=== PATIENT | female | born 1985 | race Caucasian/White ===

== ENCOUNTER 2022-12-29 13:59 | Emergency (ER) | payer OTHER, SELFPAY ==
[2022-12-29 14:07] VITALS: BP 142/87; PULSE 90; RESP 18; O2SAT 98
[2022-12-29] MEDS: predniSONE 20 MG TAB 40 MG PO (14:35)
[2022-12-29] MEDS: Lidocaine 5% Patch 1 PATCH TP (14:35)
[2022-12-29] MEDS: Acetaminophen 500 MG TAB 1000 MG PO (14:35)
--- NOTE | 2022-12-29 14:56 | DI.RAD_ITS ---
Exam(s) XR HIP LT COMPLETE AP PELVIS EXAM: XR HIP LT COMPLETE AP PELVIS CLINICAL HISTORY: left hip pain at SI joint. TECHNIQUE: 2D digital imaging was performed. COMPARISON: No exams were available for comparison FINDINGS: 3 views No evidence of pelvic nor hip fracture. No hip joint space narrowing. SI joints appear unremarkable . Bone density normal. No osseous lesions. IMPRESSION: No significant osseous findings. DATA REPOSITORY: RADIATION DOSE DELIVERED:
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
[2022-12-29 15:19] VITALS: BP 142/87; PULSE 90; RESP 18; O2SAT 98
== END 2022-12-29 15:20 | disposition home or self-care (01) ==
PROVIDERS: Emergency Provider Student in an Organized Health Care Education/Training Program
DX: M54.50 Low back pain, unspecified (principal); M46.1 Sacroiliitis, not elsewhere classified
CPT/HCPCS: 81025; 99283; 73502; J7512

== ENCOUNTER 2023-08-10 22:34 | Outpatient (REF) | payer BC, SELFPAY ==
[2023-08-10 15:35] LABS: ESR 20 mm/hr (0-20)
[2023-08-10 15:37] LABS: Abs Immature Grans 0.02 10^3/uL (0.0-0.06); Absolute Basophil Count 0.03 10^3/uL (0.0-0.2); Absolute Eosinophil Count 0.32 10^3/uL (0.0-0.7); Absolute Lymphocyte Count 2.91 10^3/uL (1.2-3.4); Absolute Monocyte Count 0.53 10^3/uL (0.1-0.8); Absolute Neutrophil Count 4.65 10^3/uL (1.2-6.7); Basophils % 0.4; Eosinophils % 3.8; HCT 41.1 % (36.0-46.0); HGB 13.7 g/dL (11.2-15.7); Immature Grans % 0.2; Lymphocytes % 34.4; MCHC 33.3 % (32.0-36.0); MCV 87 fL (80-95); MPV 8.9 fL (8.0-11.0); Monocytes % 6.3; Neutrophils % 54.9; Platelet Count 488 10^3/uL (130-400); RBC 4.73 10^6/uL (3.93-5.22); RDW 12.3 % (11.7-14.6); RDW-SD 39.2 fL; WBC 8.46 10^3/uL (4.4-10.8)
[2023-08-10 16:05] LABS: ALT 23 U/L (14-59); AST 14 U/L (15-37); Alkaline Phosphatase 54 U/L (46-116); Anion Gap 12.7 mmol/L (3-11); BUN 16 mg/dL (7-18); Bilirubin, Total 0.3 mg/dL (0.2-1.0); CO2 24.3 mmol/L (21.0-32.0); CREATININE 1.1 mg/dL (0.55-1.02); Calculated LDL 102 mg/dL (<100); Chloride 102 mmol/L (98-107); Cholesterol 191 mg/dL (<200); Estimated GFR 65.55 (mL/min/1.73m2); Glucose 84 mg/dL (74-106); HDL Cholesterol 45 mg/dL (40-60); Potassium 4.5 mmol/L (3.5-5.1); Sodium 139 mmol/L (136-145); TSH (W/Ref FT4) 1.15 uIU/mL (0.36-3.74); Total Protein 7.4 g/dL (6.4-8.2); Triglyceride 223 mg/dL (<150)
== END 2023-08-10 22:35 | disposition home or self-care (01) ==
LOC: NCHCN 22:34
PROVIDERS: PCP Family Medicine; Visit Provider Family Medicine
DX: Z00.00 Encounter for general adult medical examination without abnormal findings (principal); L93.0 Discoid lupus erythematosus; E66.8 Other obesity; R79.89 Other specified abnormal findings of blood chemistry; Z13.220 Encounter for screening for lipoid disorders
CPT/HCPCS: 80053; 80061; 85652; 84443; 85025

== ENCOUNTER → 2023-08-13 03:13 | Outpatient (CLI) | payer BC, SELFPAY ==
--- NOTE | 2023-08-13 | DI.MAMMO_ITS ---
Exam(s) MAMMO SCREENING EXAM: MAMMO SCREENING CLINICAL HISTORY: SCREENING, Z12.31,FAMILY H/O BREAST CA. TECHNIQUE: Bilateral full field digital CC and MLO mammographic images were obtained with 3D tomosyn thesis and utilizing computer aided detection (CAD). COMPARISON: Prior mammograms were reviewed. FINDINGS: Fibroglandular tissue pattern is moderately dense. There are nodular densities bilaterally. In the left breast there are 3 nodular densities towards the medial aspect of the breast, the largest measuring 9 by 5 mm and located 7 cm in from the nipple. More medially there is a slightly smaller nodular density measuring 9 cm from the nipple. The 3rd-smallest asymmetric density measures 3-4 mm and is located 10 cm from the nipple. In the right breast on the CC view there is a 4 x 3 millimeter nodule located 10 cm in from the nippl e on the CC view and another adjacent nodular density also noted. Similar distance from nipple on th e CC view. Also a larger asymmetric density located medially measuring 12 x 8 mm, located 9 cm in fr om the nipple on the CC view. On the MLO view of the right breast there is a oval noncalcified 7 x 5 mm nodule located 9 cm in from the nipple on the MLO view. There are no malignant-appearing microcalcification groups in either breast. No significant architectural distortion or skin thickening-traction. IMPRESSION: Moderately dense bilateral fibroglandular tissue with multiple nodular densities in both breasts. Sp ot compression views and bilateral breast ultrasound recommended. BI-RADS Category 0 - Assessment Incomplete: Need additional imaging evaluation Breast Density - Category C - Heterogeneously dense Breast density Category C or D implies that the patient has dense breast tissue. Dense breast tissue can make it harder to find cancer on a mammogram. Dense breast tissue is also associated with an incr eased risk of breast cancer. This information about the result of the mammogram report was provided to the patient to raise their awareness. Use this report when you speak with the patient about their risks for breast cancer, which includes their family history. At that time, you may recommend additional screening tests (Ultrasoun d or MRI) as these tests may add significant information. A negative radiographic report should not delay biopsy if a dominant or clinically suspicious mass is present. Up to ten percent of cancers are not identified on mammography. A negative report may reinforce clinical impression. Adenosis and dense breasts may obscure an underlying neoplasm. False positive reports average 6 to 10%. Patient will receive a letter notifying them of these results.
== END ==
PROVIDERS: PCP Family Medicine; Visit Provider Family Medicine
DX: Z12.31 Encounter for screening mammogram for malignant neoplasm of breast (principal)
CPT/HCPCS: 77063; 77067

== ENCOUNTER → 2023-08-17 00:55 | Outpatient (CLI) | payer BC, SELFPAY ==
--- NOTE | 2023-08-17 | DI.US_ITS ---
Exam(s) US BREAST LT COMPLETE US BREAST RT COMPLETE MG MAMMO SCREEN CALL BACK BI EXAM: MG MAMMO SCREEN CALL BACK BI and U/S breast bilateral complete CLINICAL HISTORY: F/U ABNL MAMMO, R92.8,LT DENSITIES,RT NODULE. TECHNIQUE: Craniocaudal and mediolateral oblique Full Field Digital Mammography views of the bilater al breast with Computer Aided Diagnosis followed by Tomosynthesis and bilateral breast ultrasound. COMPARISON: Comparison with baseline mammogram. FINDINGS: Mammography/Tomosynthesis: Masses/Architectural Distortion: The ovoid area persists in the posterior medial left breast on the a dditional craniocaudad view. The other nodular areas are less prominent. In the right breast, the a symmetric density persists in the medial right breast but appears less concerning. Microcalcifictions: No suspicious pleomorphic-type are seen. Skin Thickening/Nipple Retraction: None. Complete bilateral breast US: All 4 quadrants of both breasts were evaluated sonographically in addit ion to the axilla and retroareolar regions. Echotexture: Normal appearance of the glandular tissue. Shadowing: No suspicious foci. Cyst: Multiple cysts are seen bilaterally. No suspicious cysts are seen. Solid lesions: None seen. Ductal dilation: None. IMPRESSION: 1. No definite evidence of malignancy is noted. 2. A six-month follow-up bilateral mammogram is requested for re-evaluation. 3. The findings were discussed with the patient on the date of the examination. BI-RADS Category 3 - 6 month - Probably Benign Finding: Recommend follow-up imaging in 6 months Breast Density - Category C - Heterogeneously dense Breast density Category C or D implies that the patient has dense breast tissue. Dense breast tissue can make it harder to find cancer on a mammogram. Dense breast tissue is also associated with an incr eased risk of breast cancer. This information about the result of the mammogram report was provided to the patient to raise their awareness. Use this report when you speak with the patient about their risks for breast cancer, which includes their family history. At that time, you may recommend additional screening tests (Ultrasoun d or MRI) as these tests may add significant information. A negative radiographic report should not delay biopsy if a dominant or clinically suspicious mass is present. Up to ten percent of cancers are not identified on mammography. A negative report may reinforce clinical impression. Adenosis and dense breasts may obscure an underlying neoplasm. False positive reports average 6 to 10%. Patient will receive a letter notifying them of these results.
== END ==
PROVIDERS: PCP Family Medicine; Visit Provider Family Medicine
DX: Z12.31 Encounter for screening mammogram for malignant neoplasm of breast (principal); R92.8 Other abnormal and inconclusive findings on diagnostic imaging of breast
CPT/HCPCS: 76642; 77063; 77067

== ENCOUNTER 2024-10-23 21:46 | Outpatient (REF) | payer BC, SELFPAY ==
[2024-10-23 22:06] LABS: Anion Gap 7.8 mmol/L (3-11); BUN 8 mg/dL (7-18); CO2 26.2 mmol/L (21.0-32.0); CREATININE 0.9 mg/dL (0.55-1.02); Calcium 8.8 mg/dL (8.5-10.1); Calculated LDL 101 mg/dL (<100); Chloride 102 mmol/L (98-107); Cholesterol 166 mg/dL (<200); Estimated GFR 82.88 (mL/min/1.73m2); Glucose 83 mg/dL (74-106); HDL Cholesterol 48 mg/dL (>or=50); Potassium 4.5 mmol/L (3.5-5.1); Sodium 136 mmol/L (136-145); Triglyceride 85 mg/dL (<150)
== END 2024-10-23 21:47 | disposition home or self-care (01) ==
LOC: NCHCN 21:46
PROVIDERS: PCP Family Medicine; Visit Provider Family Medicine
DX: Z00.00 Encounter for general adult medical examination without abnormal findings (principal)
CPT/HCPCS: 80048; 80061